=== PATIENT | female | born 1960 | race Caucasian/White ===

== ENCOUNTER 2023-05-08 13:01 | Inpatient (IN) | payer OTHER, MEDICAID ==
[~2023-05-08] VITALS: Ht 167.6 cm; Wt 62.3 kg
[2023-05-08 13:30] VITALS: BP_SYST 130; PULSE 76; RESP 19; TEMP 98; O2SAT 98
[2023-05-08] MEDS ORDERED: NACL 0.9% 1,000 ML IV ONE (13:45)
[2023-05-08 13:58] LABS: BASOPHILS % (AUTO) 0.4 % (0.0-2.0); EOSINOPHILS % (AUTO) 0.1 % (0.0-4.0); HEMATOCRIT 35.7 % (36-48); HEMOGLOBIN 11.6 g/dL (12.0-16.0); LYMPHOCYTES # (AUTO) 0.8 K/uL (1.0-5.5); LYMPHOCYTES % (AUTO) 7.1 % (20.5-51.5); MEAN CORPUSCULAR HEMOGLOBIN 31 pg (27-31); MEAN CORPUSCULAR HGB CONC 33 % (32-36); MEAN CORPUSCULAR VOLUME 94 fL (79.0-98.0); MONOCYTES # (AUTO) 1.1 K/uL (0.0-1.0); MONOCYTES % (AUTO) 10.2 % (1.7-9.3); NEUTROPHILS % (AUTO) 82.2 % (40.0-70.0); PLATELET COUNT (AUTO) 192 K/uL (130-430); RED CELL DISTRIBUTION WIDTH 17.4 % (9.0-15.0); WHITE BLOOD COUNT (AUTO) 10.9 K/uL (4.8-10.8)
[2023-05-08 14:17] LABS: INR 1.2 (0.8-1.2); PROTHROMBIN TIME 11.9 SECS (9.5-12.5)
[2023-05-08 14:20] LABS: CALCIUM 9.3 mg/dL (8.4-11.0); CREATININE 7.41 mg/dL (0.55-1.30)
[2023-05-08 14:25] LABS: ALBUMIN 2.3 g/dL (3.4-4.8); BILIRUBIN,DIRECT 0.2 mg/dL (0.0-0.3); TOTAL BILIRUBIN 0.4 mg/dL (0.0-1.0); TOTAL PROTEIN, SERUM 7.3 g/dL (6.4-8.3)
[2023-05-08] MEDS ORDERED: MAGNESIUM SULFATE 50 ML IV PRN (16:00)
[2023-05-08] MEDS ORDERED: POTASSIUM CHLORIDE 20 MEQ TABLET.ER PO PRN (16:00)
[2023-05-08] MEDS ORDERED: LORazepam 2 MG/ML VIAL IVP PRN (16:00)
[2023-05-08] MEDS ORDERED: ONDANSETRON HCL 4 MG/2 ML VIAL IVP PRN (16:00)
[2023-05-08] MEDS ORDERED: DOCUSATE SODIUM 100 MG CAPSULE PO PRN (16:00)
[2023-05-08] MEDS ORDERED: ZOLPIDEM TARTRATE 5 MG TABLET PO PRN (16:00)
[2023-05-08] MEDS ORDERED: MUPIROCIN 2% TOPICAL OINTMENT 22 GM NS PRN (16:00)
[2023-05-08] MEDS ORDERED: APIX5TAB PO (16:05)
[2023-05-08] MEDS ORDERED: CARV12.548 PO (16:05)
[2023-05-08] MEDS ORDERED: CRAN450T9 PO (16:05)
[2023-05-08] MEDS ORDERED: ACETAMINOPHEN 500 MG TABLET PO PRN ×3 (16:15)
[2023-05-08] MEDS ORDERED: NIFE90TA24 PO (16:48)
[2023-05-08] MEDS ORDERED: SUCR500T PO (16:48)
[2023-05-08] MEDS ORDERED: NEU300 PO (16:48)
[2023-05-08] MEDS ORDERED: TRAM50TA2 PO (16:48)
[2023-05-08] MEDS ORDERED: CARB15DR93 EACH EAR (16:48)
[2023-05-08] MEDS ORDERED: BISA-140 PO (16:48)
[2023-05-08] MEDS ORDERED: ESCI10TA PO (16:48)
[2023-05-08] MEDS ORDERED: INSU100V7 SUBCUT (16:48)
[2023-05-08] MEDS ORDERED: LIP40 PO (16:48)
[2023-05-08] MEDS ORDERED: VITA1CAP PO (16:48)
[2023-05-08] MEDS ORDERED: ACET325T PO (16:48)
[2023-05-08] MEDS ORDERED: DICLOFENAC SODIUM 3% TP (16:48)
[2023-05-08] MEDS ORDERED: HYDR-4037 PO (16:48)
[2023-05-08] MEDS ORDERED: DEXTROSE 50% JECT 50 ML DISP.SYRIN IVP PRN (18:00)
[2023-05-08] MEDS: D5NS 1,000 ML IV SCH (18:40)
[2023-05-08] MEDS: PANTOPRAZOLE SODIUM 40 MG/VIAL (PROTONIX) IVP SCH (21:00)
[2023-05-09] VITALS (30 sets, daily range): BP systolic 95–142; PULSE 68–100; RESP 14–27; TEMP 97–99.8; O2SAT 93–98
[2023-05-09] MEDS ORDERED: IPRATROPIUM/ALBUTEROL SULFATE 3 ML AMPUL.NEB (DUONEB) INH PRN (00:45)
[2023-05-09] MEDS ORDERED: VANCOMYCIN HCL 1,000 MG in NS 250 ML IV SCH (01:45)
[2023-05-09] MEDS ORDERED: VANCOMYCIN HCL 1000 MG/VIAL IV ONE (04:13)
[2023-05-09] MEDS: INSULIN LISPRO SLIDING SCALE 100 UNITS/ML, 3 ML VIAL (humaLOG) SUBCUT PRN ×4 (05:43→21:10)
[2023-05-09 05:50] LABS: BASOPHILS % (AUTO) 0.2 % (0.0-2.0); HEMATOCRIT 36.4 % (36-48); HEMOGLOBIN 11.9 g/dL (12.0-16.0); LYMPHOCYTES # (AUTO) 0.5 K/uL (1.0-5.5); LYMPHOCYTES % (AUTO) 2.7 % (20.5-51.5); MEAN CORPUSCULAR HEMOGLOBIN 31 pg (27-31); MEAN CORPUSCULAR HGB CONC 33 % (32-36); MEAN CORPUSCULAR VOLUME 93 fL (79.0-98.0); MONOCYTES # (AUTO) 0.9 K/uL (0.0-1.0); MONOCYTES % (AUTO) 4.9 % (1.7-9.3); NEUTROPHILS # (AUTO) 17.7 K/uL (1.8-7.7); NEUTROPHILS % (AUTO) 92.2 % (40.0-70.0); PLATELET COUNT (AUTO) 212 K/uL (130-430); RED BLOOD CELL COUNT(AUTO) 3.92 MIL/uL (4.2-6.2); RED CELL DISTRIBUTION WIDTH 17.3 % (9.0-15.0); WHITE BLOOD COUNT (AUTO) 19.2 K/uL (4.8-10.8)
[2023-05-09 05:57] LABS: CALCIUM 9.1 mg/dL (8.4-11.0); CREATININE 5.07 mg/dL (0.55-1.30); POTASSIUM 3.4 mmol/L (3.5-5.1)
[2023-05-09] MEDS: D5/0.45 NS 1,000 ML IV SCH ×2 (08:30→17:35)
[2023-05-09 09:00] LABS: ABG O2 SAT% ESTIMATE 99.2 % (94.0-100.0); BLOOD GAS BASE EXCESS -0.1 mmol/L (-3.0-3.0); BLOOD GAS HCO3 22.9 mmol/L (21.0-27.0); BLOOD GAS PCO2 32.9 mmHg (35.0-45.0); BLOOD GAS PO2 160.7 mmHg (75.0-100.0)
[2023-05-09 09:39] LABS: CALCIUM 9.3 mg/dL (8.4-11.0); CREATININE 5.51 mg/dL (0.55-1.30)
[2023-05-09 09:46] LABS: ALBUMIN 2.2 g/dL (3.4-4.8); TOTAL BILIRUBIN 0.5 mg/dL (0.0-1.0); TOTAL PROTEIN, SERUM 8.1 g/dL (6.4-8.3)
[2023-05-09] MEDS: PANTOPRAZOLE SODIUM 40 MG/VIAL (PROTONIX) IVP SCH ×2 (10:34→21:01)
[2023-05-09] MEDS: D5NS 1,000 ML IV SCH (11:40)
[2023-05-09] MEDS ORDERED: AZTREONAM 0.5 GM in NS 50 ML IV SCH (12:15)
[2023-05-09] MEDS ORDERED: AZTREONAM 0.5 GM in NS 50 ML IV ONE (14:45)
[2023-05-09] MEDS: AZTREONAM 0.5 GM in NS 50 ML IV SCH (21:01)
[2023-05-10] VITALS (23 sets, daily range): BP systolic 96–200; PULSE 66–93; RESP 14–22; TEMP 97.1–99.3; O2SAT 88–98
[2023-05-10] MEDS: AZTREONAM 0.5 GM in NS 50 ML IV SCH ×3 (05:49→21:08)
[2023-05-10] MEDS: INSULIN LISPRO SLIDING SCALE 100 UNITS/ML, 3 ML VIAL (humaLOG) SUBCUT PRN ×2 (06:10→17:53)
[2023-05-10 06:43] LABS: BASOPHILS % (AUTO) 0.2 % (0.0-2.0); EOSINOPHILS % (AUTO) 0.2 % (0.0-4.0); HEMATOCRIT 34.2 % (36-48); HEMOGLOBIN 11.2 g/dL (12.0-16.0); LYMPHOCYTES # (AUTO) 0.7 K/uL (1.0-5.5); LYMPHOCYTES % (AUTO) 4.5 % (20.5-51.5); MEAN CORPUSCULAR HEMOGLOBIN 31 pg (27-31); MEAN CORPUSCULAR HGB CONC 33 % (32-36); MEAN CORPUSCULAR VOLUME 93 fL (79.0-98.0); MONOCYTES # (AUTO) 0.6 K/uL (0.0-1.0); MONOCYTES % (AUTO) 3.7 % (1.7-9.3); NEUTROPHILS # (AUTO) 14.2 K/uL (1.8-7.7); NEUTROPHILS % (AUTO) 91.4 % (40.0-70.0); PLATELET COUNT (AUTO) 209 K/uL (130-430); RED BLOOD CELL COUNT(AUTO) 3.67 MIL/uL (4.2-6.2); RED CELL DISTRIBUTION WIDTH 17.1 % (9.0-15.0); WHITE BLOOD COUNT (AUTO) 15.6 K/uL (4.8-10.8)
[2023-05-10 06:56] LABS: CALCIUM 9.3 mg/dL (8.4-11.0); CREATININE 6.47 mg/dL (0.55-1.30); POTASSIUM 3.4 mmol/L (3.5-5.1); VANCOMYCIN,RANDOM 18.1 ug/mL (20.0-30.0)
[2023-05-10] MEDS: PANTOPRAZOLE SODIUM 40 MG/VIAL (PROTONIX) IVP SCH ×2 (10:00→21:08)
[2023-05-10] MEDS ORDERED: hydrALAZINE HCL 10 MG TABLET PO ONE (11:00)
[2023-05-10] MEDS ORDERED: CARVEDILOL 12.5 MG TABLET (COREG) PO ONE (11:00)
[2023-05-10] MEDS: hydrALAZINE HCL 10 MG TABLET PO SCH (15:00)
[2023-05-10] MEDS: D5/0.45 NS 1,000 ML IV SCH (16:49)
[2023-05-10] MEDS ORDERED: EPOETIN ALFA-EPBX 4,000 UNITS/ML VIAL SUBCUT SCH (17:00)
[2023-05-10] MEDS: CARVEDILOL 12.5 MG TABLET (COREG) PO SCH (21:08)
[2023-05-11] MEDS: AZTREONAM 0.5 GM in NS 50 ML IV SCH ×3 (05:04→21:53)
[2023-05-11 08:37] LABS: BASOPHILS % (AUTO) 0.2 % (0.0-2.0); HEMATOCRIT 32.5 % (36-48); HEMOGLOBIN 10.7 g/dL (12.0-16.0); LYMPHOCYTES # (AUTO) 0.5 K/uL (1.0-5.5); LYMPHOCYTES % (AUTO) 7.6 % (20.5-51.5); MEAN CORPUSCULAR HEMOGLOBIN 31 pg (27-31); MEAN CORPUSCULAR HGB CONC 33 % (32-36); MEAN CORPUSCULAR VOLUME 93 fL (79.0-98.0); MONOCYTES # (AUTO) 0.8 K/uL (0.0-1.0); MONOCYTES % (AUTO) 12.7 % (1.7-9.3); NEUTROPHILS # (AUTO) 4.8 K/uL (1.8-7.7); NEUTROPHILS % (AUTO) 79.5 % (40.0-70.0); PLATELET COUNT (AUTO) 160 K/uL (130-430); RED BLOOD CELL COUNT(AUTO) 3.49 MIL/uL (4.2-6.2); RED CELL DISTRIBUTION WIDTH 17.6 % (9.0-15.0); WHITE BLOOD COUNT (AUTO) 6.1 K/uL (4.8-10.8)
[2023-05-11 08:50] LABS: ALBUMIN 1.9 g/dL (3.4-4.8); CALCIUM 8.8 mg/dL (8.4-11.0); CREATININE 4.71 mg/dL (0.55-1.30); TOTAL BILIRUBIN 0.5 mg/dL (0.0-1.0); TOTAL PROTEIN, SERUM 7.3 g/dL (6.4-8.3); VANCOMYCIN,RANDOM 14.7 ug/mL (20.0-30.0)
[2023-05-11] MEDS: CARVEDILOL 12.5 MG TABLET (COREG) PO SCH ×2 (09:00→20:37)
[2023-05-11] MEDS: NIFEDIPINE 90 MG TABLET.SA (PROCARDIA XL 90 MG) PO SCH (09:00)
[2023-05-11] MEDS: PANTOPRAZOLE SODIUM 40 MG/VIAL (PROTONIX) IVP SCH ×2 (09:19→20:40)
[2023-05-11 10:15] VITALS: O2SAT 93
[2023-05-11 11:07] VITALS: BP_SYST 138; PULSE 70; RESP 16; TEMP 97.4; O2SAT 93
[2023-05-11] MEDS: INSULIN LISPRO SLIDING SCALE 100 UNITS/ML, 3 ML VIAL (humaLOG) SUBCUT PRN (14:06)
[2023-05-11] MEDS ORDERED: VANCOMYCIN HCL 750 MG in NS 250 ML IV ONE (15:00)
[2023-05-11 15:22] VITALS: BP_SYST 113; PULSE 74; RESP 16; TEMP 98; O2SAT 93
[2023-05-11 20:00] VITALS: BP_SYST 146; PULSE 61; RESP 18; TEMP 97.7; O2SAT 95
[2023-05-11] MEDS: hydrALAZINE HCL 10 MG TABLET PO SCH (20:37)
[2023-05-11] MEDS: D5/0.45 NS 1,000 ML IV SCH (20:40)
[2023-05-12] VITALS (7 sets, daily range): BP systolic 128–148; PULSE 55–71; RESP 16–20; TEMP 97–98.6; O2SAT 95–99
[2023-05-12] MEDS: AZTREONAM 0.5 GM in NS 50 ML IV SCH (06:15)
[2023-05-12 06:24] LABS: BASOPHILS % (AUTO) 0.6 % (0.0-2.0); EOSINOPHILS % (AUTO) 0.9 % (0.0-4.0); HEMATOCRIT 31.9 % (36-48); HEMOGLOBIN 10.5 g/dL (12.0-16.0); LYMPHOCYTES # (AUTO) 0.6 K/uL (1.0-5.5); LYMPHOCYTES % (AUTO) 14.1 % (20.5-51.5); MEAN CORPUSCULAR HEMOGLOBIN 31 pg (27-31); MEAN CORPUSCULAR HGB CONC 33 % (32-36); MEAN CORPUSCULAR VOLUME 93 fL (79.0-98.0); MONOCYTES # (AUTO) 0.4 K/uL (0.0-1.0); MONOCYTES % (AUTO) 8.3 % (1.7-9.3); NEUTROPHILS # (AUTO) 3.5 K/uL (1.8-7.7); NEUTROPHILS % (AUTO) 76.1 % (40.0-70.0); PLATELET COUNT (AUTO) 143 K/uL (130-430); RED BLOOD CELL COUNT(AUTO) 3.44 MIL/uL (4.2-6.2); RED CELL DISTRIBUTION WIDTH 17.5 % (9.0-15.0); WHITE BLOOD COUNT (AUTO) 4.6 K/uL (4.8-10.8)
[2023-05-12 06:27] LABS: INR 1.1 (0.8-1.2)
[2023-05-12 07:07] LABS: CALCIUM 8.8 mg/dL (8.4-11.0); CREATININE 6.13 mg/dL (0.55-1.30); POTASSIUM 3.9 mmol/L (3.5-5.1); VANCOMYCIN,RANDOM 25.3 ug/mL (20.0-30.0)
[2023-05-12] MEDS ORDERED: fentaNYL CITRATE/PF 100 MCG/2 ML AMP ONE (07:27)
[2023-05-12] MEDS ORDERED: MIDAZOLAM HCL 5 MG/5 ML VIAL ONE (07:27)
[2023-05-12] MEDS ORDERED: DOXYCYCLINE HYCLATE 100 MG CAPSULE PO SCH (09:00)
[2023-05-12] MEDS: NIFEDIPINE 90 MG TABLET.SA (PROCARDIA XL 90 MG) PO SCH (10:41)
[2023-05-12] MEDS: hydrALAZINE HCL 10 MG TABLET PO SCH (10:42)
[2023-05-12] MEDS: PANTOPRAZOLE SODIUM 40 MG/VIAL (PROTONIX) IVP SCH (10:42)
[2023-05-12] MEDS: CARVEDILOL 12.5 MG TABLET (COREG) PO SCH (10:42)
== END 2023-05-12 14:35 | DRG 871 ==
LOC: SED 13:01 → STU 15:57 → SIC 05-09 00:15 → STU 05-10 21:36
PROVIDERS: ADMIT General Practice; ATTEND General Practice
PROC: 5A1D70Z Performance of Urinary Filtration, Intermittent, Less than 6 Hours Per Day (ICD-10-PCS; 2023-05-08)
PROC: 5A09357 Assistance with Respiratory Ventilation, Less than 24 Consecutive Hours, Continuous Positive Airway Pressure (ICD-10-PCS; 2023-05-09)
PROC: 5A1D70Z Performance of Urinary Filtration, Intermittent, Less than 6 Hours Per Day (ICD-10-PCS; 2023-05-10)
PROC: 0DB78ZX Excision of Stomach, Pylorus, Via Natural or Artificial Opening Endoscopic, Diagnostic (ICD-10-PCS; principal; 2023-05-12 10:00)
DX: A41.9 Sepsis, unspecified organism (principal); J69.0 Pneumonitis due to inhalation of food and vomit; R65.21 Severe sepsis with septic shock; N18.6 End stage renal disease; J96.01 Acute respiratory failure with hypoxia; N17.0 Acute kidney failure with tubular necrosis; K25.4 Chronic or unspecified gastric ulcer with hemorrhage; K29.81 Duodenitis with bleeding; K29.71 Gastritis, unspecified, with bleeding; I48.20 Chronic atrial fibrillation, unspecified; I12.0 Hypertensive chronic kidney disease with stage 5 chronic kidney disease or end stage renal disease; F32.A Depression, unspecified; D64.9 Anemia, unspecified; E78.00 Pure hypercholesterolemia, unspecified; E11.42 Type 2 diabetes mellitus with diabetic polyneuropathy; K44.9 Diaphragmatic hernia without obstruction or gangrene; D72.829 Elevated white blood cell count, unspecified; E11.22 Type 2 diabetes mellitus with diabetic chronic kidney disease; Z88.1 Allergy status to other antibiotic agents; Z88.5 Allergy status to narcotic agent; Z88.8 Allergy status to other drugs, medicaments and biological substances; Z79.899 Other long term (current) drug therapy; Z99.3 Dependence on wheelchair; Z99.2 Dependence on renal dialysis; Z88.0 Allergy status to penicillin; Z79.4 Long term (current) use of insulin; Z79.01 Long term (current) use of anticoagulants; Z74.01 Bed confinement status; Z79.1 Long term (current) use of non-steroidal anti-inflammatories (NSAID)
CPT/HCPCS: 36415; 36600; 43239; 70450-TC; 71045; 74018; 76376; 80048; 80053; 80076; 80202; 82803; 82948; 83037; 83735; 83880; 85025; 85610-TC; 85730-TC; 86886; 86900; 86901; 87040; 87081; 88305; 88312; 88313; 90935; 90937; 93005; 93306; 94760; 99285; C9113; G0378; J2060; J2250; J3010; J3370; J3490; J7050; Q5106